=== PATIENT | male | born 1985 | race Caucasian/White ===

== ENCOUNTER 2017-11-04 12:38 | Emergency (ER) | payer BC ==
[~2017-11-04] VITALS: Ht 188 cm; Wt 90.3 kg
[2017-11-04 12:45] VITALS: BP 128/89
== END 2017-11-04 14:02 | disposition home or self-care (01) ==
LOC: ER 12:41
DX: S09.8XXA Other specified injuries of head, initial encounter (principal); W18.39XA Other fall on same level, initial encounter; Y93.01 Activity, walking, marching and hiking; Y92.89 Other specified places as the place of occurrence of the external cause; Y99.8 Other external cause status
CPT/HCPCS: 70450; 99284; A4606; Z7610